=== PATIENT | female | born 1965 | race Two or more races ===

== ENCOUNTER 2017-02-06 22:23 | Emergency (ER) | payer BC ==
[~2017-02-06] VITALS: Ht 157.5 cm; Wt 72.3 kg
[2017-02-06 22:25] VITALS: BP 125/82
[2017-02-06] MEDS ORDERED: HYDROcodone/APAP 5/325 TABLET ONE (23:49)
[2017-02-06] MEDS ORDERED: DIPHENHYDRAMINE 25 MG CAPSULE ONE (23:49)
[2017-02-07] MEDS ORDERED: HYDROcodone/APAP 5/325 TABLET PO ONE
[2017-02-07] MEDS ORDERED: DIPHENHYDRAMINE 25 MG CAPSULE PO ONE
== END 2017-02-07 00:40 | disposition home or self-care (01) ==
LOC: ED 23:59
DX: M25.561 Pain in right knee (principal); L50.9 Urticaria, unspecified; Z88.1 Allergy status to other antibiotic agents; Z88.0 Allergy status to penicillin
CPT/HCPCS: 29505; 73564; 99284; J7512; Q0163

== ENCOUNTER 2017-10-13 07:46 | Inpatient (IN) | payer BC, MEDICAID ==
[~2017-10-13] VITALS: Ht 157.5 cm; Wt 90.0 kg
[~2017-10-13 07:46] MED LIST: ACET325T14 PO; EPINEPHRINE 1 MG/ML, 1ML ONE; KETOROLAC 60 MG/2 ML ONE; ROPIvacaine/PF 0.2%, 20 ML ONE; SODIUM CHLORIDE 0.9% 100 ML ONE; TRANEXAMIC ACID 100 MG/ML, 10ML ONE; VANCOMYCIN 1,000 MG ONE
[2017-10-13] MEDS ORDERED: VANCOMYCIN PER PHARMACY MC STA (07:59)
[2017-10-13] MEDS ORDERED: LACTATED RINGERS 1,000 ML IV SCH (08:02)
[2017-10-13] MEDS ORDERED: OxyconTIN ER 10 MG TAB.ER PO STA (08:06)
[2017-10-13] MEDS ORDERED: FENTANYL PF 100 MCG/2ML ONE ×2 (08:25→10:12)
[2017-10-13] MEDS ORDERED: MIDAZOLAM 1 MG/ML, 2ML ONE (08:25)
[2017-10-13] MEDS ORDERED: GABAPENTIN 300 MG CAPSULE PO STA (08:28)
[2017-10-13] MEDS ORDERED: FAMOTIDINE 20 MG TABLET PO ONE (08:30)
[2017-10-13] MEDS ORDERED: SCOPOLAMINE PATCH, 1.5MG PATCH.TD72 TD ONE (08:30)
[2017-10-13] MEDS ORDERED: ACETAMINOPHEN 500 MG TABLET PO ONE (08:30)
[2017-10-13 08:37] LABS: HCG UR LOT HCG7060132; HCG UR OBC PASS
[2017-10-13] MEDS ORDERED: FAMOTIDINE 40 MG TABLET ONE (08:42)
[2017-10-13] MEDS ORDERED: ACETAMINOPHEN 500 MG TABLET ONE (08:42)
[2017-10-13] MEDS ORDERED: OxyconTIN ER 10 MG TAB.ER ONE (08:42)
[2017-10-13] MEDS ORDERED: GABAPENTIN 300 MG CAPSULE ONE (08:46)
[2017-10-13] MEDS ORDERED: METOCLOPRAMIDE 5 MG/ML, 2ML ONE ×2 (08:52→09:22)
[2017-10-13] MEDS ORDERED: ONDANSETRON 2MG/ML, 2ML IV PRN (09:00)
[2017-10-13] MEDS ORDERED: MAGNESIUM HYDROXIDE 8%, 30ML UDC PO PRN (09:00)
[2017-10-13] MEDS ORDERED: ZOLPIDEM 5MG TABLET PO PRN (09:00)
[2017-10-13] MEDS ORDERED: VANCOMYCIN 1,500 MG in SODIUM CHLORIDE 0.9% 250 ML IV SCH (09:00)
[2017-10-13] MEDS ORDERED: HYDROcodone/APAP 5/325 TABLET PO PRN (09:00)
[2017-10-13] MEDS ORDERED: CEFAZOLIN PMX 2GM/50ML 50 ML IVPB SCH (09:00)
[2017-10-13] MEDS ORDERED: ONDANSETRON 4 MG TABLET PO PRN (09:00)
[2017-10-13] MEDS ORDERED: PHARMACOKINETIC MONITORING MC PRN (09:00)
[2017-10-13] MEDS ORDERED: BISACODYL 10 MG SUPP PR PRN (09:00)
[2017-10-13] MEDS ORDERED: HYDROmorphone 1 MG/ML, 1ML IV PRN ×2 (09:00→11:00)
[2017-10-13] MEDS ORDERED: SENNA/DOCUSATE TABLET PO PRN (09:00)
[2017-10-13] MEDS ORDERED: PHARMACOKINETIC CONSULTATION MC ONE (09:00)
[2017-10-13] MEDS ORDERED: DIPHENHYDRAMINE 50 MG CAPSULE PO PRN (09:00)
[2017-10-13] MEDS ORDERED: ACETAMINOPHEN 650 MG/20.3 ML UDC PO PRN (09:00)
[2017-10-13] MEDS: SCOPOLAMINE PATCH, 1.5MG PATCH.TD72 TD ONE ×2 (09:00→18:27)
[2017-10-13] MEDS ORDERED: PROPOFOL 50 ML ONE (09:06)
[2017-10-13] MEDS ORDERED: KETAMINE 10 MG/ML, 20ML ONE (09:06)
[2017-10-13] MEDS ORDERED: HYDROmorphone 2 MG/ML, 1ML ONE ×3 (09:12→12:02)
[2017-10-13] MEDS ORDERED: ONDANSETRON 2MG/ML, 2ML ONE ×2 (09:21)
[2017-10-13] MEDS ORDERED: DEXAMETHASONE 4 MG/ML, 1ML ONE ×3 (09:21)
[2017-10-13] MEDS ORDERED: PROPOFOL 10 MG/ML, 20ML ONE (09:21)
[2017-10-13] MEDS ORDERED: KETOROLAC 30 MG/1 ML ONE (09:22)
[2017-10-13] MEDS ORDERED: BUPIVACAINE/PF 0.25% ONE (09:22)
[2017-10-13] MEDS ORDERED: LIDOCAINE-MPF 2% ,5ML ONE (09:22)
[2017-10-13] MEDS: FENTANYL PF 100 MCG/2ML IV PRN ×2 (10:24→10:33)
[2017-10-13] MEDS ORDERED: ONDANSETRON 2MG/ML, 2ML IVPush PRN ×2 (10:30→11:00)
[2017-10-13] MEDS ORDERED: DIAZEPAM 5 MG/ML, 2ML IVPush PRN ×2 (10:30→11:00)
[2017-10-13] MEDS ORDERED: MIDAZOLAM 1 MG/ML, 2ML IV PRN ×2 (10:30→11:00)
[2017-10-13] MEDS ORDERED: MEPERIDINE/PF 25MG/0.5ML IVPush PRN ×2 (10:30→11:00)
[2017-10-13] MEDS ORDERED: hydrALAzine 20 MG/ML, 1ML IV PRN ×2 (10:30→11:00)
[2017-10-13] MEDS ORDERED: OXYcodone 5 MG/5 ML ORAL.SOL UDC PO PRN ×2 (10:30→11:00)
[2017-10-13] MEDS ORDERED: LABETALOL 5MG/ML, 20ML IV PRN ×2 (10:30→11:00)
[2017-10-13] MEDS: HYDROmorphone 1 MG/ML, 1ML IV PRN ×2 (10:45→11:04)
[2017-10-13] MEDS ORDERED: FENTANYL PF 100 MCG/2ML IV PRN (11:00)
[2017-10-13] MEDS ORDERED: ALBUTEROL/IPRATROPIUM 2.5MG/0.5MG, 3 ML NPPB PRN (11:00)
[2017-10-13] MEDS ORDERED: PROMETHAZINE 25 MG/ML, 1ML IV PRN (11:00)
[2017-10-13] MEDS ORDERED: ALBUTEROL SULFATE 2.5 MG/3 ML NPPB PRN (11:00)
[2017-10-13] MEDS ORDERED: LORazepam 2 MG/ML, 1ML IVPush PRN (11:00)
[2017-10-13] MEDS: ASPIRIN 81 MG TABLET EC PO SCH (18:28)
[2017-10-13] MEDS: DOCUSATE 100 MG CAPSULE PO SCH ×3 (18:28→20:12)
[2017-10-13] MEDS: NS + 20MEQ KCL 1,000 ML IV SCH ×2 (19:45→21:18)
[2017-10-13 20:00] VITALS: BP 118/78
[2017-10-13] MEDS ORDERED: VANCOMYCIN PMX 1GM/200ML 200 ML IV ONE (20:00)
[2017-10-13] MEDS: OXYcodone IR 5MG TABLET PO PRN (20:11)
[2017-10-13 22:32] VITALS: BP 102/61
[2017-10-14 00:31] VITALS: BP 102/58
[2017-10-14] MEDS: OXYcodone IR 5MG TABLET PO PRN ×6 (00:45→23:28)
[2017-10-14 04:14] VITALS: BP 111/55
[2017-10-14 05:49] LABS: HEMATOCRIT 34.3 % (34.6-47.8); HEMOGLOBIN 11.9 g/dL (11.7-16.4)
[2017-10-14] MEDS ORDERED: DEXAMETHASONE 4 MG/ML, 1ML IVPush SCH (06:00)
[2017-10-14] MEDS: ASPIRIN 81 MG TABLET EC PO SCH ×2 (06:02→18:03)
[2017-10-14] MEDS: NS + 20MEQ KCL 1,000 ML IV SCH ×2 (07:15→21:33)
[2017-10-14 08:04] VITALS: BP 122/76
[2017-10-14] MEDS: DOCUSATE 100 MG CAPSULE PO SCH ×2 (09:23→21:25)
[2017-10-14] MEDS ORDERED: OXYC5CAP2 PO (11:50)
[2017-10-14] MEDS ORDERED: TRAM50TA2 PO (11:55)
[2017-10-14] MEDS ORDERED: MELO7.5T31 PO (11:59)
[2017-10-14] MEDS ORDERED: ONDA4TAB10 PO (11:59)
[2017-10-14 14:12] VITALS: BP 149/79
[2017-10-14 21:58] VITALS: BP 146/86
[2017-10-15 03:51] VITALS: BP 117/75
[2017-10-15 04:27] LABS: HEMATOCRIT 32.7 % (34.6-47.8); HEMOGLOBIN 11.3 g/dL (11.7-16.4)
[2017-10-15] MEDS: ASPIRIN 81 MG TABLET EC PO SCH ×2 (07:05→17:29)
[2017-10-15 08:22] VITALS: BP 123/79
[2017-10-15] MEDS: NS + 20MEQ KCL 1,000 ML IV SCH (08:30)
[2017-10-15] MEDS: OXYcodone IR 5MG TABLET PO PRN ×3 (09:11→17:29)
[2017-10-15] MEDS: DOCUSATE 100 MG CAPSULE PO SCH (09:11)
[2017-10-15 14:07] VITALS: BP 144/84
== END 2017-10-15 18:52 | disposition home or self-care (01) | DRG 470 ==
LOC: ORIP 07:46 → 4NOR 11:34
PROVIDERS: ADMIT Orthopaedic Surgery; ATTEND Orthopaedic Surgery
PROC: 0SRC0J9 Replacement of Right Knee Joint with Synthetic Substitute, Cemented, Open Approach (ICD-10-PCS; principal; 2017-10-13 11:00)
DX: M17.11 Unilateral primary osteoarthritis, right knee (principal); J45.909 Unspecified asthma, uncomplicated; Z88.0 Allergy status to penicillin; Z88.1 Allergy status to other antibiotic agents
CPT/HCPCS: 36415; 81025; 85014; 85018; C1713; J0171; J1100; J1170; J1885; J2250; J2405; J2704; J2795; J3010; J3370; J3480; J3490; Q0162; C1776; J2765; J7120

== ENCOUNTER 2018-04-29 15:09 | Emergency (ER) | payer MEDICAID ==
[~2018-04-29] VITALS: Ht 157.5 cm; Wt 83.9 kg
[~2018-04-29 15:09] MED LIST changes: -EPINEPHRINE 1 MG/ML, 1ML ONE; -KETOROLAC 60 MG/2 ML ONE; +MELO7.5T31 PO; +ONDA4TAB10 PO; +OXYC5CAP2 PO; -ROPIvacaine/PF 0.2%, 20 ML ONE; -SODIUM CHLORIDE 0.9% 100 ML ONE; +TRAM50TA2 PO; -TRANEXAMIC ACID 100 MG/ML, 10ML ONE; -VANCOMYCIN 1,000 MG ONE
[2018-04-29] MEDS ORDERED: hydrOXyzine 50MG TABLET ONE (16:18)
[2018-04-29] MEDS ORDERED: METOCLOPRAMIDE 10MG TABLET ONE (16:18)
[2018-04-29] MEDS ORDERED: METOCLOPRAMIDE 10MG TABLET PO ONE (16:30)
[2018-04-29 16:36] LABS: ALANINE AMINOTRANSFERASE 34 U/L (12-78); ANION GAP 7 mmol/L (5-15); CALCIUM 9.1 mg/dL (8.5-10.1); CHLORIDE 105 mmol/L (98-107); CREATININE 0.73 mg/dL (0.55-1.02)
[2018-04-29 16:39] LABS: ALKALINE PHOSPHATASE 107 U/L (45-117); BILIRUBIN,TOTAL 0.6 mg/dL (0.2-1.0)
[2018-04-29 16:40] LABS: BASOPHILS # (AUTO) 0.03 x10^3/uL (0-0.1); BASOPHILS % (AUTO) 0 % (0-1); EOSINOPHILS % (AUTO) 1 % (1-7); LYMPHOCYTES % (AUTO) 24 % (22-44); MD NO; MEAN CORPUSCULAR HEMOGLOBIN 30.6 pg (27.0-34.8); MEAN CORPUSCULAR HGB CONC 34.4 g/dL (32.4-35.8); MEAN CORPUSCULAR VOLUME 89.1 fL (80-100); MEAN PLATELET VOLUME 8.8 fL (7.4-10.4); MONOCYTES # (AUTO) 0.34 x10^3/uL (0.2-0.8); MONOCYTES % (AUTO) 4 % (2-9); NEUTROPHILS # (AUTO) 5.64 x10^3/uL (1.8-6.8); NEUTROPHILS % (AUTO) 70 % (42-75); PLATELET COUNT 282 x10^3/uL (130-400); RED BLOOD COUNT 4.82 x10^6/uL (3.82-5.3); RED CELL DISTRIBUTION WIDTH 13.4 % (9.6-15.2)
[2018-04-29 17:17] VITALS: BP 124/61
== END 2018-04-29 17:19 | disposition home or self-care (01) ==
LOC: ED 16:45
DX: T78.49XA Other allergy, initial encounter (principal); J02.9 Acute pharyngitis, unspecified; X58.XXXA Exposure to other specified factors, initial encounter
CPT/HCPCS: 36415; 80053; 85025; 99284; Q0177

== ENCOUNTER → 2019-04-09 | Outpatient (CLI) | payer MEDICAID ==
[~2019-04-09] MED LIST changes: +DICL100G19 TP; +MELO7.5T5 PO; +NAPR-856 PO; +ONDA4TAB7 PO
[2019-04-09 14:43] LABS: BASOPHILS # (AUTO) 0.03 x10^3/uL (0-0.1); BASOPHILS % (AUTO) 1 % (0-1); EOSINOPHILS # (AUTO) 0.11 x10^3/uL (0-0.4); EOSINOPHILS % (AUTO) 2 % (1-7); LYMPHOCYTES # (AUTO) 1.81 x10^3/uL (1-3.4); LYMPHOCYTES % (AUTO) 26 % (22-44); MD NO; MEAN CORPUSCULAR HEMOGLOBIN 31.6 pg (27.0-34.8); MEAN CORPUSCULAR HGB CONC 34.2 g/dL (32.4-35.8); MEAN CORPUSCULAR VOLUME 92.6 fL (80-100); MEAN PLATELET VOLUME 9.6 fL (7.4-10.4); MONOCYTES # (AUTO) 0.36 x10^3/uL (0.2-0.8); MONOCYTES % (AUTO) 5 % (2-9); NEUTROPHILS # (AUTO) 4.71 x10^3/uL (1.8-6.8); NEUTROPHILS % (AUTO) 67 % (42-75); PLATELET COUNT 227 x10^3/uL (130-400); RED BLOOD COUNT 4.71 x10^6/uL (3.82-5.3); RED CELL DISTRIBUTION WIDTH 13.1 % (9.6-15.2)
[2019-04-09 14:51] LABS: ANION GAP 6 mmol/L (5-15); CALCIUM 8.9 mg/dL (8.5-10.1); CHLORIDE 106 mmol/L (98-107)
[2019-04-09 14:56] LABS: CREATININE 0.81 mg/dL (0.55-1.02)
[2019-04-09 15:05] LABS: HEMOGLOBIN A1C 5.3 % (4.2-6.3)
[2019-04-09 15:17] LABS: INTERNATIONAL NORMALIZED RATIO 0.97 (0.93-1.1); PROTHROMBIN TIME 10.2 Seconds (9.6-11.5)
== END | disposition home or self-care (01) ==
LOC: STAR 13:31
PROVIDERS: ATTEND Orthopaedic Surgery
DX: Z01.818 Encounter for other preprocedural examination (principal); M17.11 Unilateral primary osteoarthritis, right knee; Z96.651 Presence of right artificial knee joint
CPT/HCPCS: 36415; 80048; 83036; 85025; 85610; 85730; 87081

== ENCOUNTER 2019-04-19 06:58 | Inpatient (IN) | payer MEDICAID ==
[~2019-04-19] VITALS: Ht 157.5 cm; Wt 83.0 kg
[~2019-04-19 06:58] MED LIST changes: +EPINEPHRINE 1 MG/ML, 1ML ONE; +KETOROLAC 60 MG/2 ML ONE; +ROPIvacaine/PF 0.5%, 30 ML ONE; +SODIUM CHLORIDE 0.9% 50 ML ONE; +TRANEXAMIC ACID 100 MG/ML, 10ML ONE; +VANCOMYCIN 1,000 MG ONE
[2019-04-19] MEDS ORDERED: VANCOMYCIN PER PHARMACY MC STA (07:07)
[2019-04-19] MEDS ORDERED: MIDAZOLAM 1 MG/ML, 2ML ONE (07:51)
[2019-04-19] MEDS ORDERED: FENTANYL PF 250 MCG/5ML ONE (07:51)
[2019-04-19] MEDS ORDERED: ACETAMINOPHEN 500 MG TABLET PO ONE (08:00)
[2019-04-19] MEDS ORDERED: GABAPENTIN 300 MG CAPSULE PO ONE (08:00)
[2019-04-19] MEDS ORDERED: LACTATED RINGERS 1,000 ML IV SCH (08:11)
[2019-04-19] MEDS ORDERED: ACETAMINOPHEN 650 MG/20.3 ML UDC PO PRN (09:00)
[2019-04-19] MEDS ORDERED: ONDANSETRON 2MG/ML, 2ML IV PRN ×2 (09:00→11:00)
[2019-04-19] MEDS ORDERED: DIPHENHYDRAMINE 50 MG CAPSULE PO PRN (09:00)
[2019-04-19] MEDS ORDERED: BISACODYL 10 MG SUPP PR PRN (09:00)
[2019-04-19] MEDS: DOCUSATE 100 MG CAPSULE PO SCH ×2 (09:00→20:33)
[2019-04-19] MEDS ORDERED: ZOLPIDEM 5MG TABLET PO PRN (09:00)
[2019-04-19] MEDS ORDERED: SCOPOLAMINE PATCH, 1.5MG PATCH.TD72 TD ONE (09:00)
[2019-04-19] MEDS ORDERED: ONDANSETRON 4 MG TABLET PO PRN (09:00)
[2019-04-19] MEDS ORDERED: MAGNESIUM HYDROXIDE 8%, 30ML UDC PO PRN (09:00)
[2019-04-19] MEDS ORDERED: SENNA/DOCUSATE TABLET PO PRN (09:00)
[2019-04-19] MEDS ORDERED: CEFAZOLIN PMX 2GM/50ML 50 ML IVPB SCH ×2 (09:00→14:00)
[2019-04-19] MEDS ORDERED: ONDANSETRON 2MG/ML, 2ML ONE ×2 (10:10→12:01)
[2019-04-19] MEDS ORDERED: PROPOFOL 10 MG/ML, 20ML ONE (10:10)
[2019-04-19] MEDS ORDERED: LIDOCAINE-MPF 2% ,5ML ONE (10:10)
[2019-04-19] MEDS ORDERED: DEXAMETHASONE 4 MG/ML, 1ML ONE (10:10)
[2019-04-19] MEDS ORDERED: BUPIVACAINE/PF 0.25% ONE (10:10)
[2019-04-19] MEDS ORDERED: EPHEDRINE 50 MG/ML, 1ML ONE (10:16)
[2019-04-19] MEDS ORDERED: MEPERIDINE/PF 100 MG/ML ONE (10:59)
[2019-04-19] MEDS ORDERED: ALBUTEROL/IPRATROPIUM 2.5MG/0.5MG, 3 ML NPPB PRN (11:00)
[2019-04-19] MEDS ORDERED: FENTANYL PF 100 MCG/2ML IV PRN (11:00)
[2019-04-19] MEDS ORDERED: PROMETHAZINE 25 MG/ML, 1ML IV PRN (11:00)
[2019-04-19] MEDS ORDERED: hydrALAzine 20 MG/ML, 1ML IV PRN (11:00)
[2019-04-19] MEDS ORDERED: DIAZEPAM 5 MG/ML, 2ML IVPush PRN (11:00)
[2019-04-19] MEDS ORDERED: OXYcodone 5 MG/5 ML ORAL.SOL UDC PO PRN (11:00)
[2019-04-19] MEDS ORDERED: MEPERIDINE/PF 25MG/0.5ML IVPush PRN (11:00)
[2019-04-19] MEDS ORDERED: HYDROmorphone 2 MG/ML, 1ML IVPush PRN (11:00)
[2019-04-19] MEDS ORDERED: MIDAZOLAM 1 MG/ML, 2ML IV PRN (11:00)
[2019-04-19] MEDS ORDERED: ROPIvacaine/PF 0.2%, 100ML 550 ML in BAG 1 EACH EPIDCONT ONE (11:00)
[2019-04-19] MEDS ORDERED: METOPROLOL 1 MG/ML, 5ML IV PRN (11:00)
[2019-04-19] MEDS ORDERED: SCOPOLAMINE PATCH, 1.5MG PATCH.TD72 TD PRN (11:00)
[2019-04-19] MEDS ORDERED: LIDOCAINE 2%, 6 ML JEL.PF.APP MM ONE (11:11)
[2019-04-19] MEDS ORDERED: OXYcodone 5 MG/5 ML ORAL.SOL UDC ONE (11:39)
[2019-04-19] MEDS ORDERED: HYDROmorphone 2 MG/ML, 1ML ONE (11:39)
[2019-04-19] MEDS ORDERED: FENTANYL PF 100 MCG/2ML ONE (11:39)
[2019-04-19] MEDS: HYDROmorphone 1 MG/ML, 1ML INJ IV PRN ×2 (11:43→12:09)
[2019-04-19] MEDS ORDERED: PROMETHAZINE 25 MG/ML, 1ML ONE (12:03)
[2019-04-19 13:05] VITALS: BP 116/79
[2019-04-19] MEDS: NS + 20MEQ KCL 1,000 ML IV SCH ×2 (14:21→21:41)
[2019-04-19] MEDS ORDERED: VANCOMYCIN PMX 1GM/200ML 200 ML IV ONE (18:00)
[2019-04-19] MEDS: ASPIRIN 81 MG TABLET EC PO SCH (18:10)
[2019-04-19 19:32] VITALS: BP 122/87
[2019-04-19] MEDS: HYDROcodone/APAP 5/325 TABLET PO PRN (20:33)
[2019-04-20 00:05] VITALS: BP 120/76
[2019-04-20] MEDS: HYDROcodone/APAP 5/325 TABLET PO PRN ×3 (01:14→13:43)
[2019-04-20 04:05] VITALS: BP 151/81
[2019-04-20] MEDS: ASPIRIN 81 MG TABLET EC PO SCH (05:58)
[2019-04-20] MEDS ORDERED: DEXAMETHASONE 4 MG/ML, 1ML IVPush SCH (06:00)
[2019-04-20 07:23] VITALS: BP 147/83
[2019-04-20] MEDS: DOCUSATE 100 MG CAPSULE PO SCH (08:52)
== END 2019-04-20 14:37 | disposition home or self-care (01) | DRG 470 ==
LOC: ORIP 06:58 → 4NOR 12:56 → DCLOUNGE 04-20 13:53
PROVIDERS: ADMIT Orthopaedic Surgery; ATTEND Orthopaedic Surgery
PROC: 3E0T3BZ Introduction of Anesthetic Agent into Peripheral Nerves and Plexi, Percutaneous Approach (ICD-10-PCS; 2019-04-19)
PROC: 0SRC0J9 Replacement of Right Knee Joint with Synthetic Substitute, Cemented, Open Approach (ICD-10-PCS; principal; 2019-04-19 09:45)
DX: M17.11 Unilateral primary osteoarthritis, right knee (principal); J45.909 Unspecified asthma, uncomplicated; G89.29 Other chronic pain; E66.9 Obesity, unspecified; Z88.0 Allergy status to penicillin; Z88.8 Allergy status to other drugs, medicaments and biological substances; Z82.61 Family history of arthritis; Z82.5 Family history of asthma and other chronic lower respiratory diseases; Z68.33 Body mass index [BMI] 33.0-33.9, adult
CPT/HCPCS: 36415; 73560; J3490; 85014; 85018; C1713; G0378; J0171; J0690; J1100; J1170; J1885; J2250; J2405; J2550; J2704; J2795; J3010; J3370; J3480; C1776; J2175; J7120

== ENCOUNTER 2019-05-16 21:02 | Emergency (ER) | payer MEDICAID ==
[~2019-05-16] VITALS: Ht 157.5 cm; Wt 81.8 kg
[2019-05-16 23:29] VITALS: BP 158/95
== END 2019-05-17 00:41 | disposition home or self-care (01) ==
LOC: ED 23:55
DX: R06.00 Dyspnea, unspecified (principal); K21.0 Gastro-esophageal reflux disease with esophagitis; J45.909 Unspecified asthma, uncomplicated; Z90.49 Acquired absence of other specified parts of digestive tract; F17.200 Nicotine dependence, unspecified, uncomplicated; Z96.651 Presence of right artificial knee joint; Z90.722 Acquired absence of ovaries, bilateral
CPT/HCPCS: 36415; 71275; 80053; 83690; 84484; 85025; 93005; 93971; 96374; 96375; 99284; J2060; J2270; J2405; Q9967

== ENCOUNTER 2019-05-18 18:29 | Emergency (ER) | payer MEDICAID ==
[~2019-05-18] VITALS: Ht 157.5 cm; Wt 88.0 kg
[2019-05-18 19:25] VITALS: BP 156/85
== END 2019-05-18 20:27 | disposition home or self-care (01) ==
LOC: ED 18:41
DX: R10.13 Epigastric pain (principal); R07.89 Other chest pain; K21.9 Gastro-esophageal reflux disease without esophagitis; Z90.49 Acquired absence of other specified parts of digestive tract; Z87.891 Personal history of nicotine dependence; Z96.651 Presence of right artificial knee joint
CPT/HCPCS: 36415; 71045; 80053; 83690; 83880; 84484; 85025; 93005; 99284

== ENCOUNTER 2019-06-03 13:14 | Emergency (ER) | payer MEDICAID ==
[~2019-06-03] VITALS: Ht 165.1 cm; Wt 84.0 kg
[2019-06-03 13:57] VITALS: BP 147/91
== END 2019-06-03 14:58 | disposition home or self-care (01) ==
LOC: ED 14:52
DX: G89.29 Other chronic pain (principal); R10.13 Epigastric pain; F41.1 Generalized anxiety disorder; R06.00 Dyspnea, unspecified; Z90.49 Acquired absence of other specified parts of digestive tract; J45.909 Unspecified asthma, uncomplicated; K21.9 Gastro-esophageal reflux disease without esophagitis
CPT/HCPCS: 93005; 99283

== ENCOUNTER 2019-06-09 13:48 | Emergency (ER) | payer MEDICAID ==
[~2019-06-09] VITALS: Ht 165.1 cm; Wt 79.0 kg
[2019-06-09 17:00] VITALS: BP 148/93
== END 2019-06-09 17:51 | disposition home or self-care (01) ==
LOC: ED 14:52
DX: K29.50 Unspecified chronic gastritis without bleeding (principal); K21.9 Gastro-esophageal reflux disease without esophagitis; J45.909 Unspecified asthma, uncomplicated; Z90.49 Acquired absence of other specified parts of digestive tract; Z90.721 Acquired absence of ovaries, unilateral; Z96.651 Presence of right artificial knee joint
CPT/HCPCS: 36415; 74177; 80053; 83690; 84484; 85025; 93005; 96374; 99284; J3490; Q9967

== ENCOUNTER → 2020-08-10 | Outpatient (CLI) | payer MEDICARE, MEDICAID ==
[~2020-08-10] MED LIST changes: -EPINEPHRINE 1 MG/ML, 1ML ONE; -KETOROLAC 60 MG/2 ML ONE; -ROPIvacaine/PF 0.5%, 30 ML ONE; -SODIUM CHLORIDE 0.9% 50 ML ONE; -TRANEXAMIC ACID 100 MG/ML, 10ML ONE; -VANCOMYCIN 1,000 MG ONE
== END | disposition home or self-care (01) ==
LOC: CFH 14:42
PROVIDERS: ATTEND Nurse Practitioner Primary Care
DX: Z12.31 Encounter for screening mammogram for malignant neoplasm of breast (principal)
CPT/HCPCS: 77063; 77067